=== PATIENT | female | born 2000 | race African-American/Black ===

== ENCOUNTER 2023-04-19 14:40 | Emergency (ER) | payer OTHER ==
[2023-04-19] MEDS ORDERED: Ibuprofen 800 MG TAB ONE (15:29)
[2023-04-19] MEDS ORDERED: Dexamethasone 10 MG/ML VIAL ONE (16:31)
== END 2023-04-19 16:32 | disposition home or self-care (01) ==
LOC: CSHERS 14:40
DX: J02.9 Acute pharyngitis, unspecified (principal); B34.9 Viral infection, unspecified; F17.210 Nicotine dependence, cigarettes, uncomplicated
CPT/HCPCS: 87081; 87430; 99283; J1100

== ENCOUNTER 2023-05-01 17:58 | Emergency (ER) | payer OTHER ==
[2023-05-01] MEDS ORDERED: Ketorolac Tromethamine 30 MG/ML VIAL ONE (19:05)
[2023-05-01] MEDS ORDERED: Metoclopramide HCl 10 MG TAB ONE (19:05)
== END 2023-05-01 19:29 | disposition home or self-care (01) ==
LOC: CSHERS 17:58
DX: R51.9 Headache, unspecified (principal); F17.210 Nicotine dependence, cigarettes, uncomplicated
CPT/HCPCS: 96372; 99283; J1885

== ENCOUNTER 2023-06-29 18:04 | Emergency (ER) | payer OTHER | END 2023-06-29 20:42 | disposition left against medical advice (07) | LOC: CSHERS 18:04 | DX: Z53.21 Procedure and treatment not carried out due to patient leaving prior to being seen by health care provider (principal) ==

== ENCOUNTER 2023-07-01 21:43 | Emergency (ER) | payer OTHER ==
[2023-07-01] MEDS ORDERED: Ibuprofen 200 MG TAB ONE (23:15)
== END 2023-07-02 00:35 | disposition home or self-care (01) ==
LOC: CSHERS 21:43
DX: S69.91XA Unspecified injury of right wrist, hand and finger(s), initial encounter (principal); W23.1XXA Caught, crushed, jammed, or pinched between stationary objects, initial encounter